=== PATIENT | female | born 1940 | race Caucasian/White ===

== ENCOUNTER 2021-12-07 05:53 | Day surgery (SDC) | payer OTHER ==
[~2021-12-07] VITALS: Ht 172.7 cm; Wt 71.0 kg
[~2021-12-07 05:53] MED LIST: NAPR220 PO
[2021-12-07] MEDS ORDERED: ASPI81CH PO (06:30)
--- NOTE | 2021-12-07 08:55 | NUR ---
PT RETURNED TO RECOVERY ROOM IN RECLINER. LACW SITE SOFT NON-TENDER WITH NO HEMATOMA, NO BLEEDING AND INTACT DRESSING WITH ICE BAG AND 2 LB WEIGHT OVER LACW SITE. PT DENIES CHEST PAIN. CALL LIGHT IN REACH.
--- NOTE | 2021-12-07 09:10 | NUR ---
NO CHANGES TO LACW PACER SITE.
--- NOTE | 2021-12-07 09:29 | NUR ---
NO CHANGES TO LACW PACER SITE.
--- NOTE | 2021-12-07 11:14 | NUR ---
DISCHARGE INSTRUCTIONS REVIEWED ALL QUESTIONS ANSWERED. DR GUTIERREZ IN ROOM TO SEE PT. NO CHANGES TO LACW SITE.
--- NOTE | 2021-12-07 12:29 | NUR ---
NO CHANGES TO LACW PACEMAKER SITE. 22 G IV DISCONTINUED FROM LEFT WRIST WITH INTACT CANNULA. PT ESCORTED OUT VIA WHEELCHAIR ESCORT.
== END 2021-12-07 12:30 | disposition home or self-care (01) ==
LOC: MHTC 05:53
DX: I49.5 Sick sinus syndrome (principal); I48.0 Paroxysmal atrial fibrillation; I08.3 Combined rheumatic disorders of mitral, aortic and tricuspid valves
CPT/HCPCS: 33208; 71046; 99152; 99153; C1781; C1785; C1894; C1898; J0690; J1644; J2250; J3010; J7030; J7040

== ENCOUNTER 2023-01-08 13:00 | Day surgery (SDC) | payer OTHER ==
[~2023-01-08] VITALS: Ht 170.2 cm; Wt 69.2 kg
[~2023-01-08 13:00] MED LIST changes: +ASPI81CH PO
[2023-01-08] MEDS ORDERED: ELIQUIS2.5 MG PO (13:49)
[2023-01-08] MEDS ORDERED: METO25ER PO (13:49)
[2023-01-08] MEDS ORDERED: METO50ER PO (13:49)
--- NOTE | 2023-01-08 13:55 | NUR ---
01/08/23 1355 Gordon Ibarra CALL LIGHT WITHIN REACH. TETRACAINE IN RIGHT EYE AT 1350 AND PLEDGETT IN AT 1351
[2023-01-08 15:07] VITALS: BP 151/75
--- NOTE | 2023-01-08 15:07 | NUR ---
01/08/23 1507 Belkis Carlos IV REMOVED CANNULA INTACT, SITE WNL. PT SUNSHINE WELL. IN CHAIR DRINKING PO FLUIDS, TOLERATING WELL. DENIES PAIN AND NAUSEA
== END 2023-01-08 15:15 | disposition home or self-care (01) ==
LOC: ORSCSDS 13:00
PROVIDERS: Ophthalmology
PROC: 08RJ3JZ Replacement of Right Lens with Synthetic Substitute, Percutaneous Approach (ICD-10-PCS; principal; 2023-01-08 14:30)
DX: H25.11 Age-related nuclear cataract, right eye (principal); Z95.0 Presence of cardiac pacemaker; I48.0 Paroxysmal atrial fibrillation; I47.1 Supraventricular tachycardia; R06.02 Shortness of breath; Z79.82 Long term (current) use of aspirin; Z79.01 Long term (current) use of anticoagulants; Z79.899 Other long term (current) drug therapy
CPT/HCPCS: J2250; J3010; J3301; J7040; V2632

== ENCOUNTER 2023-01-15 14:31 | Day surgery (SDC) | payer OTHER ==
[~2023-01-15] VITALS: Ht 170.2 cm; Wt 69.2 kg
[~2023-01-15 14:31] MED LIST changes: +ELIQUIS2.5 MG PO; +METO25ER PO; +METO50ER PO
--- NOTE | 2023-01-15 14:59 | NUR ---
01/15/23 1459 Ivana Martinez TETRACAINE TO LEFT EYE AT 1452 PLEDGET TO LEFT EYE AT 1453 BY [facility].FLL
[2023-01-15 15:56] VITALS: BP 111/69
--- NOTE | 2023-01-15 15:58 | NUR ---
01/15/23 1558 MARIA EUGENIA HALE IV REMOVED. WNL. CANNULA INTACT. SUNSHINE WELL
== END 2023-01-15 16:10 | disposition home or self-care (01) ==
LOC: ORSCSDS 14:31
PROVIDERS: Ophthalmology
PROC: 08RK3JZ Replacement of Left Lens with Synthetic Substitute, Percutaneous Approach (ICD-10-PCS; principal; 2023-01-15 16:00)
DX: H25.12 Age-related nuclear cataract, left eye (principal); Z96.1 Presence of intraocular lens; I48.0 Paroxysmal atrial fibrillation; Z87.891 Personal history of nicotine dependence; Z95.0 Presence of cardiac pacemaker; Z79.01 Long term (current) use of anticoagulants; Z79.899 Other long term (current) drug therapy
CPT/HCPCS: J2250; J3010; J3301; J7040; V2632

== ENCOUNTER 2024-11-26 18:37 | Emergency (ER) | payer OTHER ==
[~2024-11-26] VITALS: Ht 175.3 cm; Wt 81.7 kg
[2024-11-26] MEDS ORDERED: Lidocaine 4% 1 Patch TOP ONE (19:00)
[2024-11-26] MEDS ORDERED: Ketorolac Tromethamine 15mg Vial IM ONE (19:00)
[2024-11-26 20:10] LABS: BASOPHILS ABSOLUTE AUTO 0.04 K/mm3 (0.00-0.23); BASOPHILS PERCENT AUTO 0 % (0-2); EOSINOPHILS ABSOLUTE AUTO 0.11 K/mm3 (0.00-0.68); EOSINOPHILS PERCENT AUTO 1 % (0-6); Hematocrit 41.9 % (33.0-51.0); Hemoglobin 13.9 g/dL (11.5-16.0); IMMATURE GRAN ABSOLUTE AUTO 0.02 K/mm3 (0.00-0.10); IMMATURE GRAN PERCENT AUTO 0 % (0-1); LYMPHOCYTES ABSOLUTE AUTO 1.71 K/mm3 (0.84-5.20); LYMPHOCYTES PERCENT AUTO 18 % (21-46); MONOCYTES ABSOLUTE AUTO 0.46 K/mm3 (0.16-1.47); MONOCYTES PERCENT AUTO 5 % (4-13); Mean Corpuscular HGB Conc 33.2 g/dL (31.5-36.5); Mean Corpuscular Volume 92 fL (80-100); NEUTROPHILS ABSOLUTE AUTO 7.12 K/mm3 (1.96-9.15); NEUTROPHILS PERCENT AUTO 75 % (41-73); NRBC ABSOLUTE 0.00 K/mm3 (0.00-0.02); NRBC Auto 0.0 /100 WBC (0.0-0.2); Platelet Count 266 K/mm3 (150-400); RDW Coefficient Variation 13.6 % (11.7-14.2); RDW Standard Deviation 46.2 fL (35.1-46.3)
[2024-11-26 20:25] LABS: Alanine Aminotransfer (ALT/SGP 52.0 U/L (12-78); Albumin, Blood 3.4 g/dL (3.4-5.0); Albumin/Globulin Ratio 0.8 (0.8-1.8); Anion Gap 11.0 mmol/L (3-11); Aspartate Aminotrans (AST/SGOT 39.0 U/L (12-37); Bilirubin, Total 0.3 mg/dL (0.1-1.0); Blood Urea Nitrogen 16.0 mg/dL (8-24); CO2, Blood 23.0 mmol/L (21-32); Calcium, Blood 8.8 mg/dL (8.5-10.1); Chloride, Blood 108.0 mmol/L (98-108); Creatinine, Blood 0.77 mg/dL (0.40-1.00); Globulin, Blood 4.2 g/dL (2.2-4.0); Glucose, Blood 180.0 mg/dL (70-99); Potassium, Blood 4.5 mmol/L (3.5-5.5); Sodium, Blood 137.0 mmol/L (136-145); Total Protein, Blood 7.6 g/dL (6.4-8.2)
[2024-11-26] MEDS ORDERED: HYDROmorphone HCl/Pf 1MG SYR IV ONE (20:50)
[2024-11-26 21:30] VITALS: BP 143/64
[2024-11-26] MEDS ORDERED: TIZA4 PO (21:31)
[2024-11-26] MEDS ORDERED: LIDO700A20 TOP (21:31)
== END 2024-11-26 22:14 | disposition home or self-care (01) ==
LOC: ER 18:37
PROVIDERS: Physician Assistant
DX: M54.50 Low back pain, unspecified (principal); R55 Syncope and collapse; Z79.899 Other long term (current) drug therapy; Z87.891 Personal history of nicotine dependence
CPT/HCPCS: 80053; 85025; 93005; 93010; 96374; 96375; 99283-25; A9270; J1171; J1885

== ENCOUNTER 2025-03-07 09:15 | Emergency (ER) | payer OTHER ==
[~2025-03-07] VITALS: Ht 165.1 cm; Wt 68.0 kg
[~2025-03-07 09:15] MED LIST changes: +LIDO700A20 TOP; +TIZA4 PO
[2025-03-07 10:01] LABS: BASOPHILS ABSOLUTE AUTO 0.03 K/mm3 (0.00-0.23); BASOPHILS PERCENT AUTO 0 % (0-2); EOSINOPHILS ABSOLUTE AUTO 0.01 K/mm3 (0.00-0.68); EOSINOPHILS PERCENT AUTO 0 % (0-6); Hematocrit 47.2 % (33.0-51.0); Hemoglobin 15.3 g/dL (11.5-16.0); IMMATURE GRAN ABSOLUTE AUTO 0.02 K/mm3 (0.00-0.10); IMMATURE GRAN PERCENT AUTO 0 % (0-1); LYMPHOCYTES ABSOLUTE AUTO 1.32 K/mm3 (0.84-5.20); LYMPHOCYTES PERCENT AUTO 13 % (21-46); MONOCYTES ABSOLUTE AUTO 0.48 K/mm3 (0.16-1.47); MONOCYTES PERCENT AUTO 5 % (4-13); Mean Corpuscular HGB Conc 32.4 g/dL (31.5-36.5); Mean Corpuscular Volume 90 fL (80-100); NEUTROPHILS ABSOLUTE AUTO 8.37 K/mm3 (1.96-9.15); NEUTROPHILS PERCENT AUTO 82 % (41-73); NRBC ABSOLUTE 0.00 K/mm3 (0.00-0.02); NRBC Auto 0.0 /100 WBC (0.0-0.2); Platelet Count 264 K/mm3 (150-400); RDW Coefficient Variation 13.3 % (11.7-14.2); RDW Standard Deviation 43.8 fL (35.1-46.3)
[2025-03-07 10:12] LABS: Alanine Aminotransfer (ALT/SGP 142.0 U/L (12-78); Albumin, Blood 3.4 g/dL (3.4-5.0); Albumin/Globulin Ratio 0.9 (0.8-1.8); Anion Gap 10.0 mmol/L (3-11); Aspartate Aminotrans (AST/SGOT 66.0 U/L (12-37); Bilirubin, Total 0.5 mg/dL (0.1-1.0); Blood Urea Nitrogen 22.0 mg/dL (8-24); CO2, Blood 19.0 mmol/L (21-32); Calcium, Blood 7.8 mg/dL (8.5-10.1); Chloride, Blood 115.0 mmol/L (98-108); Creatinine, Blood 1.31 mg/dL (0.40-1.00); Globulin, Blood 3.9 g/dL (2.2-4.0); Glucose, Blood 158.0 mg/dL (70-99); Magnesium, Blood 2.1 mg/dL (1.6-2.4); Potassium, Blood 3.6 mmol/L (3.5-5.5); Sodium, Blood 140.0 mmol/L (136-145); Total Protein, Blood 7.3 g/dL (6.4-8.2)
[2025-03-07] MEDS ORDERED: Mag Sulfate 1 GM/D5% 100ML 100 ML IV ONE (10:25)
[2025-03-07 11:40] LABS: Influenza A, PCR NEGATIVE (NEGATIVE); Influenza B, PCR NEGATIVE (NEGATIVE); Resp Syncytial Virus, PCR NEGATIVE (NEGATIVE); SARS-Cov-2 (COVID-19) PCR, MMC NEGATIVE (NEGATIVE)
[2025-03-07] MEDS ORDERED: Robaxin750 MG PO (12:59)
[2025-03-07 13:30] VITALS: BP 132/84
== END 2025-03-07 13:46 | disposition home or self-care (01) ==
LOC: ER 09:15
PROVIDERS: Student in an Organized Health Care Education/Training Program
DX: R25.2 Cramp and spasm (principal); R19.7 Diarrhea, unspecified; Z87.891 Personal history of nicotine dependence; Z79.899 Other long term (current) drug therapy
CPT/HCPCS: 80053; 83690; 83735; 85025; 87637; 93005; 93010; 96365; 99284-25; J3475; J7120

== ENCOUNTER 2025-03-12 10:51 | Emergency (ER) | payer OTHER ==
[~2025-03-12] VITALS: Ht 172.7 cm; Wt 65.8 kg
[~2025-03-12 10:51] MED LIST changes: +Robaxin750 MG PO
[2025-03-12] MEDS ORDERED: NS 1,000 ML IV SCH (11:50)
[2025-03-12] MEDS ORDERED: CALCIUM GLUC IN NACL, ISO-OSM 50 ML IV ONE (11:50)
[2025-03-12 12:40] LABS: Hematocrit 50.0 % (33.0-51.0); Hemoglobin 17.8 g/dL (11.5-16.0); Mean Corpuscular HGB Conc 35.6 g/dL (31.5-36.5); Mean Corpuscular Volume 85 fL (80-100); NRBC ABSOLUTE 0.00 K/mm3 (0.00-0.02); NRBC Auto 0.0 /100 WBC (0.0-0.2); Platelet Count 338 K/mm3 (150-400); RDW Coefficient Variation 12.9 % (11.7-14.2); RDW Standard Deviation 39.8 fL (35.1-46.3)
[2025-03-12 12:59] LABS: Anion Gap Unable to Calculate mmol/L (3-11)
[2025-03-12 13:00] LABS: Albumin/Globulin Ratio Unable to Calculate (0.8-1.8); Globulin, Blood Unable to Calculate g/dL (2.2-4.0)
[2025-03-12 13:40] LABS: Source, Urine Straight Cath
[2025-03-12 13:43] LABS: Bilirubin, Urine Neg (Neg); Color, Urine Yellow (P-Yellow); Glucose Qualitative, Urine Neg (Neg); Ketones, Urine Neg (Neg); Leukocyte Esterase, Urine 1+ (Neg); Protein, Urine 1+ (Neg); Specific Gravity, Urine 1.020 (1.003-1.022); Urobilinogen, Urine NORM (Normal)
[2025-03-12 14:03] LABS: Red Blood Cells, Urine 0-2 /hpf (0-2)
[2025-03-12 14:07] LABS: BASOPHILS ABSOLUTE MAN 0.08 K/mm3 (0.00-0.23); BASOPHILS PERCENT MAN 1 % (0-2); EOSINOPHILS ABSOLUTE MAN 0.00 K/mm3 (0.00-0.68); EOSINOPHILS PERCENT MAN 0 % (0-6); LYMPHOCYTES ABSOLUTE MAN 1.98 K/mm3 (0.84-5.20); LYMPHOCYTES PERCENT MAN 23 % (21-46); MONOCYTES ABSOLUTE MAN 1.29 K/mm3 (0.16-1.47); MONOCYTES PERCENT MAN 15 % (4-13); NEUTROPHILS ABSOLUTE MAN 5.26 K/mm3 (1.96-9.15); SEG NEUTROPHILS PERCENT MAN 61 % (41-73)
[2025-03-12 14:53] LABS: Alanine Aminotransfer (ALT/SGP 64.0 U/L (12-78); Albumin, Blood 3.4 g/dL (3.4-5.0); Albumin/Globulin Ratio 0.7 (0.8-1.8); Anion Gap 9.0 mmol/L (3-11); Aspartate Aminotrans (AST/SGOT 24.0 U/L (12-37); Bilirubin, Total 0.3 mg/dL (0.1-1.0); Blood Urea Nitrogen 90.0 mg/dL (8-24); CO2, Blood 22.0 mmol/L (21-32); Calcium, Blood 9.0 mg/dL (8.5-10.1); Chloride, Blood 104.0 mmol/L (98-108); Creatinine, Blood 1.33 mg/dL (0.40-1.00); Globulin, Blood 4.8 g/dL (2.2-4.0); Glucose, Blood 104.0 mg/dL (70-99); Potassium, Blood 3.2 mmol/L (3.5-5.5); Sodium, Blood 132.0 mmol/L (136-145); Total Protein, Blood 8.2 g/dL (6.4-8.2)
[2025-03-12 16:20] LABS: Influenza A, PCR NEGATIVE (NEGATIVE); Influenza B, PCR NEGATIVE (NEGATIVE); Resp Syncytial Virus, PCR NEGATIVE (NEGATIVE); SARS-Cov-2 (COVID-19) PCR, MMC NEGATIVE (NEGATIVE)
[2025-03-12 18:15] VITALS: BP 110/66
== END 2025-03-12 18:15 | disposition home or self-care (01) ==
LOC: ER 10:51
PROVIDERS: Student in an Organized Health Care Education/Training Program
DX: N17.9 Acute kidney failure, unspecified (principal); E86.0 Dehydration; R42 Dizziness and giddiness; I48.91 Unspecified atrial fibrillation; E87.6 Hypokalemia; Z79.01 Long term (current) use of anticoagulants; Z95.0 Presence of cardiac pacemaker; Z87.891 Personal history of nicotine dependence
CPT/HCPCS: 71046; 80053; 81001; 83735; 83880; 84484; 85025; 87086; 87637; 93005; 93010; 96361; 96374; 99285-25; A9270; J0612; J7030